=== PATIENT | male | born 1955 | race Caucasian/White ===

== ENCOUNTER → 2020-03-01 09:41 | Outpatient (CLI) | payer OTHER, SELFPAY ==
--- NOTE | 2020-03-01 09:49 | DI.RAD.S_ITS ---
PROCEDURE: XR KNEE LT 1TO2V INDICATIONS: LEFT KNEE AND THIGH PAIN TECHNIQUE: 2 of views of the knee were acquired. COMPARISON: None. FINDINGS: Bones: Chronic fracture of the distal femoral diametaphysis, status post oswaldo and screw fixation. Visualized hardware appears grossly intact. There is expected postoperative alignment. Soft tissues: No joint effusion. No suspicious soft tissue calcifications. Mild left knee joint degeneration. IMPRESSION: Mild left knee joint degeneration. Postsurgical changes as above Dictated by: Evens Escudero M.D. on 03/01/2020 at 10:57 Approved by: Evens Escudero M.D. on 03/01/2020 at 10:58
--- NOTE | 2020-03-01 09:49 | DI.RAD.S_ITS ---
PROCEDURE: XR FEMUR LT MIN 2V INDICATIONS: LEFT KNEE AND THIGH PAIN TECHNIQUE: 2 views of the femur were acquired. COMPARISON: None. FINDINGS: No suspicious bony lesions. Partially visualized IM oswaldo and screw fixation of the left femur. Hardware appears grossly intact were visualized. No evidence of hardware loosening. Mild left hip joint degeneration. Partially visualized chronic fracture deformity and callus formation of the distal femur. Soft tissues: No suspicious soft tissue calcifications or masses. IMPRESSION: Degenerative and postsurgical changes as above. Dictated by: Evens Escudero M.D. on 03/01/2020 at 10:58 Approved by: Evens Escudero M.D. on 03/01/2020 at 11:00
== END ==
DX: M25.562 Pain in left knee (principal); M79.652 Pain in left thigh; M17.12 Unilateral primary osteoarthritis, left knee; M16.12 Unilateral primary osteoarthritis, left hip
CPT/HCPCS: 73552; 73560